=== PATIENT | male | born 1940 | race Caucasian/White ===

== ENCOUNTER 2017-08-21 12:59 | Emergency (ER) | payer MEDICARE, BC ==
[~2017-08-21] VITALS: Ht 175.3 cm; Wt 91.9 kg
[~2017-08-21 12:59] MED LIST: ACARBOSE PO; ALBU6.7H INH; ASPI-845 PO; CARCD120C PO; CHOL100046 PO; FERR325T39 PO; GLIP10TA11 PO; LISI1TAB13 PO; MAGN400C PO; METF500T PO; NIA500ERT PO; OMEG10007 PO; OMEP-84 PO; OXYGEN; [UNRECOGNIZED DRUG - MIXTURE] PO
[2017-08-21] MEDS ORDERED: AZIT500T2 PO (13:30)
[2017-08-21 13:34] VITALS: BP 125/63
== END 2017-08-21 13:34 | disposition home or self-care (01) ==
LOC: ER 12:59
DX: J06.9 Acute upper respiratory infection, unspecified (principal); I11.0 Hypertensive heart disease with heart failure; I50.9 Heart failure, unspecified; I25.10 Atherosclerotic heart disease of native coronary artery without angina pectoris; E78.00 Pure hypercholesterolemia, unspecified; E11.9 Type 2 diabetes mellitus without complications; J44.9 Chronic obstructive pulmonary disease, unspecified; M19.90 Unspecified osteoarthritis, unspecified site; Z87.891 Personal history of nicotine dependence; Z79.82 Long term (current) use of aspirin; Z79.84 Long term (current) use of oral hypoglycemic drugs; Z79.899 Other long term (current) drug therapy
CPT/HCPCS: 99283

== ENCOUNTER 2018-01-05 15:14 | Outpatient (CLI) | payer MEDICARE, BC ==
[~2018-01-05] VITALS: Ht 175.3 cm; Wt 88.5 kg
[2018-01-05 15:55] LABS: TOTAL HEMOGLOBIN 14.1 G/dl (14.0-18.0)
[2018-01-05] MEDS ORDERED: albuterol 2.5 MG/3 ML nebule NEB PRN (16:10)
== END 2018-01-05 23:59 | disposition home or self-care (01) ==
LOC: RT 15:14
PROVIDERS: ATTEND Internal Medicine Pulmonary Disease
DX: J44.9 Chronic obstructive pulmonary disease, unspecified (principal); I10 Essential (primary) hypertension; E11.9 Type 2 diabetes mellitus without complications; Z87.891 Personal history of nicotine dependence
CPT/HCPCS: 85018; 94060; 94640; 94727; 94729; 94760

== ENCOUNTER 2020-01-13 15:11 | Emergency (ER) | payer MEDICARE, BC ==
[~2020-01-13] VITALS: Ht 175.3 cm; Wt 90.0 kg
[~2020-01-13 15:11] MED LIST changes: -ALBU6.7H INH; +ALBU6.7H9 INH; -LISI1TAB13 PO; +LISI1TAB29 PO
[2020-01-13 18:23] VITALS: BP 136/81
--- NOTE | 2020-01-13 18:28 | NUR ---
Pt. had extra large BM.
== END 2020-01-13 18:31 | disposition home or self-care (01) ==
LOC: ER 15:11
DX: K59.00 Constipation, unspecified (principal); I25.10 Atherosclerotic heart disease of native coronary artery without angina pectoris; I50.9 Heart failure, unspecified; E78.00 Pure hypercholesterolemia, unspecified; I11.0 Hypertensive heart disease with heart failure; J44.9 Chronic obstructive pulmonary disease, unspecified; E11.9 Type 2 diabetes mellitus without complications; M19.90 Unspecified osteoarthritis, unspecified site; Z98.890 Other specified postprocedural states; Z79.82 Long term (current) use of aspirin; Z79.899 Other long term (current) drug therapy
CPT/HCPCS: 99284

== ENCOUNTER 2021-01-08 17:43 | Emergency (ER) | payer MEDICARE, BC ==
[~2021-01-08] VITALS: Ht 172.7 cm; Wt 86.4 kg
[2021-01-08 17:51] VITALS: BP 174/92
[2021-01-08] MEDS ORDERED: triamcinolone acetonide 40mg/ml inj IM ONE (19:45)
== END 2021-01-08 20:15 | disposition home or self-care (01) ==
LOC: ER 17:44
DX: T78.40XA Allergy, unspecified, initial encounter (principal); T63.481A Toxic effect of venom of other arthropod, accidental (unintentional), initial encounter; I25.10 Atherosclerotic heart disease of native coronary artery without angina pectoris; I11.0 Hypertensive heart disease with heart failure; I50.9 Heart failure, unspecified; E78.00 Pure hypercholesterolemia, unspecified; J44.9 Chronic obstructive pulmonary disease, unspecified; E11.9 Type 2 diabetes mellitus without complications; M19.90 Unspecified osteoarthritis, unspecified site; Z98.890 Other specified postprocedural states; Z87.01 Personal history of pneumonia (recurrent); Z79.82 Long term (current) use of aspirin; Z79.899 Other long term (current) drug therapy; Y92.89 Other specified places as the place of occurrence of the external cause
CPT/HCPCS: 96372; 99283; J3301

== ENCOUNTER 2022-12-18 18:12 | Emergency (ER) | payer MEDICARE, BC ==
[~2022-12-18] VITALS: Ht 175.3 cm; Wt 77.4 kg
[~2022-12-18 18:12] MED LIST changes: +ALBU6.7H14 INH; -ALBU6.7H9 INH; -LISI1TAB29 PO; +LISI1TAB53 PO
[2022-12-18 18:26] VITALS: BP 122/72
--- NOTE | 2022-12-18 19:39 | NUR ---
VAS tech at bedside
[2022-12-18 19:59] LABS: BASOPHILS % (AUTO) 0.6 % (0-1); EOSINOPHILS # (AUTO) 0.1 X10'3 (0-0.9); EOSINOPHILS % (AUTO) 1.9 % (0-6); HEMATOCRIT 33.7 % (42.0-52.0); HEMOGLOBIN 11.3 g/dl (14.0-17.9); LYMPHOCYTES # (AUTO) 1.3 X10'3 (1.1-4.8); MEAN CORPUSCULAR HEMOGLOBIN 29.4 PG (27.0-31.0); MEAN CORPUSCULAR HGB CONC 33.4 g/dL (33.0-36.5); MEAN PLATELET VOLUME 7.4 FL (7.4-10.4); MONOCYTES # (AUTO) 0.5 X10'3 (0-0.9); MONOCYTES % (AUTO) 11.8 % (2-12); NEUTROPHILS # (AUTO) 2.7 X10'3 (1.8-7.7); NEUTROPHILS % (AUTO) 57.7 % (42-75); PLATELET COUNT 278 X10'3 (140-440); RED BLOOD COUNT 3.83 X10'6 (4.70-6.10); RED CELL DISTRIBUTION WIDTH 14.9 % (11.5-14.5); WHITE BLOOD COUNT 4.6 X10'3 (4.5-11.0)
[2022-12-18 20:12] LABS: ALANINE AMINOTRANSFERASE 31 U/L (12-78); ALBUMIN 3.5 G/DL (3.4-5.0); ALBUMIN/GLOBULIN RATIO 1.1 (1.1-1.5); ALKALINE PHOSPHATASE 84 IU/L (46-116); ANION GAP 7 (8-16); ASPARTATE AMINO TRANSFERASE 27 U/L (10-37); BILIRUBIN,TOTAL 0.5 MG/DL (0.1-1.0); BLOOD UREA NITROGEN 27 MG/DL (7-18); BUN/CREATININE RATIO 22.3 (10.0-20.0); CALCIUM 9.3 MG/DL (8.5-10.1); CHLORIDE 105 MMOL/L (99-107); CREATININE 1.21 MG/DL (0.60-1.10); GLUCOSE 189 MG/DL (70-104); POTASSIUM 3.9 MMOL/L (3.5-5.1); SODIUM 139 MMOL/L (135-145); TOTAL CARBON DIOXIDE 27.1 MMOL/L (24-32); TOTAL PROTEIN 6.8 G/DL (6.4-8.2); eGFR 57 ML/MIN
[2022-12-18] MEDS ORDERED: CEPH500C2 PO (21:04)
[2022-12-18] MEDS ORDERED: FURO-150 PO (21:05)
[2022-12-18] MEDS ORDERED: cephalexin 500mg capsule PO ONE (21:10)
[2022-12-18] MEDS ORDERED: furosemide 20MG tablet PO ONE (21:10)
== END 2022-12-18 21:27 | disposition home or self-care (01) ==
LOC: ER 18:13
DX: M79.605 Pain in left leg (principal); M79.89 Other specified soft tissue disorders; I11.9 Hypertensive heart disease without heart failure; E78.00 Pure hypercholesterolemia, unspecified; I10 Essential (primary) hypertension; J44.9 Chronic obstructive pulmonary disease, unspecified; E11.9 Type 2 diabetes mellitus without complications; Z79.899 Other long term (current) drug therapy
CPT/HCPCS: 36415; 80053; 85025; 93971; 99284

== ENCOUNTER 2024-06-29 09:40 | Emergency (ER) | payer MEDICARE, BC ==
[~2024-06-29] VITALS: Ht 175.3 cm; Wt 79.5 kg
[~2024-06-29 09:40] MED LIST changes: -ACARBOSE PO; -ASPI-845 PO; -CARCD120C PO; +CARSR60C PO; -FERR325T39 PO; -GLIP10TA11 PO; +LANTUS SUBCUT; -LISI1TAB53 PO; -NIA500ERT PO; -OMEG10007 PO; -OMEP-84 PO; -OXYGEN; +ROSU20TA98 PO
[2024-06-29 09:49] VITALS: BP 127/68; PULSE 80; TEMP 98.1; O2SAT 99
[2024-06-29 11:40] VITALS: RESP 16
== END 2024-06-29 11:41 | disposition home or self-care (01) ==
LOC: ER 09:41
DX: S51.812A Laceration without foreign body of left forearm, initial encounter (principal); S50.812A Abrasion of left forearm, initial encounter; I25.10 Atherosclerotic heart disease of native coronary artery without angina pectoris; I11.0 Hypertensive heart disease with heart failure; I50.9 Heart failure, unspecified; E78.00 Pure hypercholesterolemia, unspecified; J44.9 Chronic obstructive pulmonary disease, unspecified; E11.9 Type 2 diabetes mellitus without complications; M19.90 Unspecified osteoarthritis, unspecified site; W19.XXXA Unspecified fall, initial encounter; Y93.89 Activity, other specified; Y92.89 Other specified places as the place of occurrence of the external cause; Y99.8 Other external cause status
CPT/HCPCS: 99284; A6258; A6402; A6449